=== PATIENT | female | born 1995 | race African-American/Black ===

== ENCOUNTER 2019-08-20 07:19 | Inpatient (IN) | payer OTHER ==
[~2019-08-20] VITALS: Ht 154.9 cm; Wt 96.4 kg
[2019-08-20] VITALS (43 sets, daily range): BP systolic 91–169; BP diastolic 52–135
[2019-08-20] MEDS ORDERED: PRENTAB9 PO (07:32)
[2019-08-20] MEDS ORDERED: LACTATED RINGER'S 1000 ML IV STA (09:39)
[2019-08-20 10:11] LABS: HEMATOCRIT 30.8 % (36.0-47.0); HEMOGLOBIN 9.8 g/dl (12.0-15.5); MEAN CORPUSCULAR HEMOGLOBIN 29.4 pg (27.0-33.0); MEAN CORPUSCULAR HGB CONC 31.8 g/dl (32.0-36.5); MEAN CORPUSCULAR VOLUME 92.5 fl (80.0-96.0); PLATELET COUNT, AUTOMATED 293 10^3/uL (150-450); RED BLOOD COUNT 3.33 10^6/uL (4.00-5.40); WHITE BLOOD COUNT 8.7 10^3/uL (4.0-10.0)
[2019-08-20 10:45] LABS: ALT/SGPT 22 U/L (12-78); BILIRUBIN,TOTAL 0.2 MG/DL (0.2-1.0); GLOMERULAR FILTRATION RATE > 60.0 (>60); LDH LACTATE DEHYDROGENASE 185 U/L (84-246); URIC ACID 3.7 MG/DL (2.6-6.0)
[2019-08-20] MEDS ORDERED: OXYTOCIN DRIP 30 UNITS in IV 1 EA IV SCH (10:45)
--- NOTE | 2019-08-20 11:03 | HPEPDOC ---
Obstetrical History & Physical General Date of Admission Aug 20, 2019 at 09:07 History of Present Illness Saravanan is a 23yo with SIUP at 39w3d by lmp c/w 9wk u/s who presents to L&D with chief complaint of contractions that started this morning. No loss of fluid, no vaginal bleeding. Has felt movement. No f/c/n/v/CP/SOB. 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: History of STD (hx of chlamydia) Past Medical History Medical History asthma as a child, obesity (starting BMI 32) Surgical History: [place] teeth Family History Significant Family History: No pertinent family hx Social History Marital Status: Family situation: Spouse/partner home Psychosocial History: No pertinent psych hx * Smoker: non-smoker Alcohol: Denies Drugs: denies Imunizations Tdap status: current Influenza Status: current Allergies Coded Allergies: No Known Allergies (Unverified , 08/20/19) Medications Scheduled No.137/Iron/Folic Acd ( Vitamin Tablet) 1 Each Tablet, 1 TAB PO DAILY Physical Examination Physical Examination GENERAL: Alert and oriented times three. ABDOMEN: Gravid and non-tender to touch. FETUS: Is vertex (VTX) by sterile vaginal examination (SVE) EXTREMITIES: No edema. Vital Signs/I&O Vital Signs Date Time Temp Pulse Resp B/P (MAP) Pulse Ox O2 Delivery O2 Flow Rate FiO2 08/20/19 08:07 74 18 114/63 (80) 08/20/19 07:48 98.3 99 Laboratory Data 24H LABS Laboratory Tests 2 08/20/19 09:15: Serology Scanned Report Hepatitis B Testing 08/20/19 09:54: CBC/BMP Pertinent Laboratoy Data Blood Type: A+ RBC Antibody Screen: Negative HIV: Negative Hepatitis B: Negative Hepatitis C: Unknown Rapid Plasma Reagin: Nonreactive Rubella: Immune Varicella: Nonreactive Chlamydia/Gonorrhea: Negative Group B Streptococcus: Negative Glucose Tolerance Test: 109 Anatomy Ultrasound Ultrasound Date: Apr 09, 2019 Placenta Location: Anterior Normal Anatomy: Yes Placenta Previa: No Steroid Therapy Steroid Therapy: No Vaginal Examination Dilation: 1cm Effacement: other (thick ) Station: -3 Cervical Consistency: Firm Cervical Position: Posterior Presentation: Cephalic presentation Assessment Heart Rate (FHR): 150 Variability: Minimal to moderate Accelerations: Positive Decelerations: Late (very occasional ) Tocometer Contractions: Yes Frequency: greater than 10 min/apart Strength: palpated as mild Assessment/Plan Assessment Saravanan is a 23yo with SIUP at 39w3d by lmp c/w 9wk u/s with no evidence of labor, but during routine NST was noted to have subtle late FHR decels and min-mod blair. Given her gestational age, I recommend we proceed with augmentation/induction which patient is amenable to. SCE 2/75/-2. Cervical gabriel bulb placed with 40cc NS. Cat II FHRT with min-mod blair, +accels, very occasional late decel. Ctx q10min. Cephalic by SCE. GBS negative. 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 Diet: clear liquids Group B Streptococcus (GBS) negative Labs and intravenous (IV) per unit protocol. Counseled on gabriel bulb, pitocin and induction of labor (IOL). Lactated Ringers (LR): Bolus 1000 mL, then at 125 mL/hr. Anticipate normal spontaneous delivery () Candidate for epidural as desired in active labor, IV stadol with reassuring FHRT prior MD Sorin Abad Katrina D MD Aug 20, 2019 10:22
[2019-08-20] MEDS: BUTORPHANOL 2 MG/ML INJ (J0595) IV PRN ×2 (11:37→15:50)
[2019-08-20] MEDS: LR 1,000 ML IV SCH ×2 (11:38→18:18)
[2019-08-20] MEDS ORDERED: FENTANYL 2MCG/ML ROPIVACAINE 0.2% IN 0.9% NACL 100ML IVBAG As Ordered ONE (18:12)
--- NOTE | 2019-08-20 18:13 | IPNPDOC ---
Text Note Date of Service The patient was seen on 08/20/19. NOTE Intrapartum Note Saravanan is doing well, coping with discomfort of her ctx. Had 2nd dose of 2mg IV stadol about 2 hours ago. A bit nauseous currently. RN reports gabriel bulb fell out earlier in the afternoon and pt had SROM, clear that was nitrazine positive with continued leaking. Pitocin has been titrated up per protocol. Vitals wnl, afebrile Cat I FHRT currently with mod blair, +accels, early decels [place]: ctx q3-4min SCE: 6/80/-2, rupture of forebag with exam and lightly stained mec fluid noted Patient now desiring epidural, anesthesia notified Will continue to titrate pitocin per protocol Equine Intern notified of presence of meconium Safe to proceed Dr. Citlalli Rowell MD VS,Holger, I+O VS, Holger, I+O Laboratory Tests 08/20/19 09:54 Vital Signs Date Time Temp Pulse Resp B/P (MAP) Pulse Ox O2 Delivery O2 Flow Rate FiO2 08/20/19 17:07 74 18 117/66 (83) 08/20/19 16:40 98.5 08/20/19 16:06 Room Air 08/20/19 07:48 99 Citlalli Rowell MD Aug 20, 2019 18:12
[2019-08-20] MEDS ORDERED: ONDANSETRON 4MG/2ML VIAL (J2405) As Ordered ONE (18:29)
[2019-08-20] MEDS ORDERED: ONDANSETRON 4MG/2ML VIAL (J2405) IV ONE (18:30)
[2019-08-20] MEDS ORDERED: diphenhydrAMINE INJ 50MG/ML VIAL (J1200) IV PRN (21:00)
[2019-08-20] MEDS ORDERED: ePHEDrine SULFATE 25 MG/5 ML(5MG/ML) SYRINGE IV PRN (21:00)
[2019-08-20] MEDS ORDERED: FENTANYL/ROPIVACAINE/NACL BAG 100 ML EPIDURAL SCH (21:00)
[2019-08-20] MEDS ORDERED: LACTATED RINGER'S 1000 ML IV PRN (21:00)
[2019-08-20] MEDS ORDERED: EPIDURAL COMMENT XX SCH (21:00)
[2019-08-20] MEDS ORDERED: REFRIGERATOR IV KEYS XX PRN (21:00)
[2019-08-20] MEDS ORDERED: EPIDURAL/PCA KEYS XX PRN (21:00)
[2019-08-20] MEDS ORDERED: ONDANSETRON 4MG/2ML VIAL (J2405) IV PRN (21:00)
[2019-08-20] MEDS ORDERED: NALOXONE INJ 0.4 MG/1 ML VIAL (J2310) IV PRN (21:00)
[2019-08-20] MEDS ORDERED: METHYLERGONOVINE MALEATE 0.2 MG/ML VIAL (J2210) As Ordered ONE (23:06)
[2019-08-20] MEDS ORDERED: OXYTOCIN 30 UNITS IN 0.9% NaCl 500ML IV BAG (J2590) As Ordered ONE (23:36)
[2019-08-21 00:13] VITALS: BP 122/66
[2019-08-21] MEDS: OXYTOCIN DRIP 30 UNITS in IV 1 EA IV SCH ×2 (00:13→01:57)
[2019-08-21] MEDS ORDERED: OXYTOCIN DRIP 30 UNITS in IV 1 EA IV SCH (00:13)
[2019-08-21] MEDS ORDERED: RHOGAM 300 MCG (1500 IU) INJ (J2790) IM SCH (00:15)
[2019-08-21] MEDS ORDERED: ACETAMINOPHEN TAB 650MG DOSE (2X325MG) PO PRN (00:15)
[2019-08-21] MEDS ORDERED: DIBUCAINE 1% OINTMENT 30GM TOP PRN (00:15)
[2019-08-21] MEDS ORDERED: MEASLES,MUMPS,RUBELLA VACCINE INJ (MMR-II) (90707) SC SCH (00:15)
[2019-08-21] MEDS ORDERED: IBUPROFEN 600 MG TAB PO PRN (00:15)
[2019-08-21] MEDS ORDERED: METHYLERGONOVINE MALEATE 0.2 MG/ML VIAL (J2210) IM ONE (00:15)
[2019-08-21] MEDS ORDERED: ACETAMINOPHEN 500 MG TAB PO PRN (00:15)
[2019-08-21] MEDS ORDERED: miSOPROStol 200 MCG TAB (S0191) PR ONE (00:15)
[2019-08-21] MEDS ORDERED: DOCUSATE SODIUM 100 MG CAP PO PRN (00:15)
[2019-08-21 00:29] VITALS: BP 125/75
--- NOTE | 2019-08-21 01:55 | DNPDOC ---
[facility] Delivery Note Delivery Note DATE OF DELIVERY: 20 Aug 2019 PREDELIVERY DIAGNOSIS: 39w3d gestation with NRFHT POST DELIVERY DIAGNOSIS: Term gestation delivered hemorrhage PROCEDURE: Spontaneous vaginal delivery FUELS ENGINEER: Dr. Citlalli Rowell MD ANESTHESIA: epidural ESTIMATED BLOOD LOSS: 750 mL. FINDINGS: 7 pound 10 ounce (3470g) female infant, Score 8/9 DELIVERY SUMMARY: Saravanan is a 23yo [id number] s/p at 39w3d after undergoing IOL for NRFHT seen when she presented for labor check. She delivered at 22:49 on 20 Aug 2019. Induction was started with gabriel bulb and pitocin. She progressed well and had SROM after receiving an epidural. Amniotic fluid was seen to be slightly meconium stained when a forebag was ruptured on a subsequent exam. When she reached C/C/0, she began pushing. head delivered OA and restituted CHALO. There was a right compound hand. Anterior shoulder delivered followed by posterior shoulder and corpus. Infant had terminal meconium but immediately vigorous, placed on maternal chest where infant's mouth and nose were suctioned with bulb suction. Cord was clamped x2 and cut by FOB, then was taken to warmer for further suctioning. Small abrasion noted on the inner left labia, repaired with a figure of 8 using 4-0 vicryl. With uterine massage and traction on the umbilical cord, placenta delivered. There were some trailing membranes that seemed to be easily retrieved just inside the vagina. However, despite IV pitocin being given per protocol and further bimanual massage, patient continued to have heavy uterine bleeding. I performed manual sweeps that retrieved small amounts of very adherent and very small pieces of placenta/membranes, but the patient continued bleeding. She was given 0.2mg IM methergine. More uterine sweeps were performed but heavy bleeding persisted in the setting of atony. I then called for bakri balloon and placed the balloon within the uterus with 100cc of NS filling the balloon- this, and having some time for the uterotonics to act, stopped the patient's bleeding. The bakri was attached to a gabriel bag. Indwelling gabriel bladder catheter was replaced. I finally placed 1000mcg of cytotec rectally for continued prophylaxis against future bleeding. When I left the room, mom was doing well. was taken to NICU for observation after needing further suctioning after delivery. Patient will receive a dose of unasyn for the uterine sweeps she received. Plan to perform CBC in 6 hours. Plan to remove fluid from Bakri incrementally. MD Sorin Abad Katrina D MD Aug 21, 2019 01:55
[2019-08-21] MEDS ORDERED: AMPICILLIN SOD/SULBACTAM SOD 3 GM in D5W MINI-BAG PLUS 100 ML IV ONE (02:00)
[2019-08-21 03:30] VITALS: BP 119/62
[2019-08-21 05:46] VITALS: BP 120/71
[2019-08-21] MEDS ORDERED: miSOPROStol 200 MCG TAB (S0191) As Ordered ONE (06:24)
[2019-08-21 06:41] LABS: HEMATOCRIT 25.3 % (36.0-47.0); MEAN CORPUSCULAR HEMOGLOBIN 29.2 pg (27.0-33.0); MEAN CORPUSCULAR HGB CONC 31.6 g/dl (32.0-36.5); MEAN CORPUSCULAR VOLUME 92.3 fl (80.0-96.0); PLATELET COUNT, AUTOMATED 244 10^3/uL (150-450); RED BLOOD COUNT 2.74 10^6/uL (4.00-5.40); WHITE BLOOD COUNT 16.1 10^3/uL (4.0-10.0)
[2019-08-21] MEDS: PRENATAL VITAMINS CHEWABLE TABLET PO SCH (08:39)
[2019-08-21] MEDS: IBUPROFEN 800 MG TAB PO PRN ×2 (08:40→17:35)
--- NOTE | 2019-08-21 09:57 | IPNPDOC ---
Progress Note Date of Service: Aug 21, 2019 Day#: 1 Progress Note PPD 1 SUBJECT: Saravanan is a 23yo [id number] s/p late last night that was complicated by PPH with EBL 700ml addressed with IV pitocin/IM methergine/FL cytotec and Bakri balloon(100cc), doing well day # 1. She has not yet ambulated, has gabriel in place draining dilute clear urine, and tolerating regular diet. Breast feeding without issue. With Bakri still in place, she feels slight cramping. No fevers/chills. She received 1 dose of IV Unasyn after delivery for uterine sweeps. No f/c/n/v/CP/SOB. OBJECTIVE: VITAL SIGNS: Within normal limits, afebrile. Alert and oriented times three. Abdomen: Fundus firm at U-2. Soft, NTTP. Extremities: no pain with palpation of calves Bakri output 75cc since placement Labs: Admission H/H: 9.8/30.8 H/H 6hr after delivery: 05/13.3 ASSESSMENT: Saravanan is a 23yo [id number] s/p late last night that was complicated by PPH with EBL 700ml addressed with IV pitocin/IM methergine/FL cytotec and Bakri balloon(100cc), doing well day # 1. Vitals within normal limits, afebrile, hemodynamically stable with no evidence of infection. Minimal output of Bakri and uterus remains firm with no bleeding around Bakri. PLAN: 1. Routine pp care 2. Discussed plan for removal of Bakri with oncoming provider. Bakri has 100cc of NS in it, will reduce incrementally. Gabriel catheter can be removed with removal of Bakri. 3. Tylenol and Motrin for pain. 4. Encourage breast feeding and ambulation 5. Regular diet Dr. Citlalli Rowell MD VS, I&O, 24H, Fishbone Vital Signs/I&O Vital Signs Date Time Temp Pulse Resp B/P (MAP) Pulse Ox O2 Delivery O2 Flow Rate FiO2 08/21/19 05:46 99.4 86 16 120/71 (87) 99 Room Air I&O- Last 24 Hours up to 6 AM 08/21/19 06:00 Intake Total 4620 ml Output Total 4326 ml Balance 294 ml Laboratory Data 24H LABS Laboratory Tests 2 08/20/19 09:54: Nucleated Red Blood Cells % (auto) 0.0, Glomerular Filtration Rate > 60.0, Uric Acid 3.7, Total Bilirubin 0.2, Aspartate Amino Transf (AST/SGOT) 13, Alanine Aminotransferase (ALT/SGPT) 22, Lactate Dehydrogenase 185, Syphilis Serology N ONREACTIVE 08/21/19 06:22: Nucleated Red Blood Cells % (auto) 0.0 CBC/BMP Laboratory Tests 08/20/19 09:54 08/21/19 06:22 Citlalli Rowell MD Aug 21, 2019 09:57
[2019-08-21 18:00] VITALS: BP 124/73
[2019-08-22 06:15] VITALS: BP 139/75
[2019-08-22] MEDS: IBUPROFEN 800 MG TAB PO PRN (08:52)
[2019-08-22] MEDS: PRENATAL VITAMINS CHEWABLE TABLET PO SCH (08:53)
--- NOTE | 2019-08-22 10:47 | DSES ---
DATE OF ADMISSION: 08/20/2019 DATE OF DISCHARGE: 08/22/2019 This lady is a 23-year-old 3 now para 1 admitted with contractions at 39 and 3 weeks of gestation, had a spontaneous vaginal delivery with epidural in place of female 7 pounds 10 ounces, 3470 grams, scores of eight and nine at 1 and 5 minutes respectively. She had a hemorrhage requiring a Bakri balloon as well as Methergine and Syntocinon. Her hemoglobin initially was 9.8, hematocrit 30.8 and platelets were 293. day 1 hemoglobin 8.0, hematocrit 25.3 and platelets 244. She did not require any transfusions. She was asymptomatic. The Bakri was removed and she has no further bleeding. Blood pressure this morning is 139/75, respirations 16, pulse 91, temperature is 98.7. We discussed phlebitis, cystitis, mastitis, endometritis, cellulitis, diet, exercise, pain management, perineal, breast and wound care. Her meds are dispensed at [place] which she has already picked up. She plans on taking the baby to [place]. The rest of the examination is unremarkable. Normocephalic, atraumatic. Neck full range of motion. Pupils equal and reactive to light. Distal pulses are symmetric. No evidence of deep vein thrombosis (DVT), pulmonary embolism (PE), or superficial phlebitis. Chest is clear bilaterally to bases. No wheezes or rhonchi. No CVA tenderness. Abdomen soft. Uterus 2 below. Lochia is moderate. Four quadrant bowel sounds are noted. Perineum is intact. She has no rashes, lesions or pruritus. No arthralgia, myalgia. No complaint joint pain. No complaint cough, wheeze, or shortness of breath or dyspnea on exertion. She has no nausea, vomiting, diarrhea or constipation. In summary we have a term gestation delivered a live female infant with a hemorrhage of 750. No replacement was required. The patient has a followup 6 weeks at [facility] and her medications were dispensed at [place], which she is already picked up.
[2019-08-22] MEDS ORDERED: IBUP-1022 PO (11:35)
[2019-08-22] MEDS ORDERED: DOCU100C16 PO (11:35)
[2019-08-22] MEDS ORDERED: ACET1TAB55 PO (11:35)
[2019-08-22] MEDS ORDERED: medroxyPROGESTERone ACET IM SUSP 150 MG/ML VIAL (J1050) IM ONE (12:00)
== END 2019-08-22 13:00 | disposition home or self-care (01) | DRG 807 ==
LOC: M LDO 07:19 → M LDI 09:07 → M OBS 08-21 03:18
PROVIDERS: ADMIT Obstetrics & Gynecology; ATTEND Obstetrics & Gynecology
PROC: 10E0XZZ Delivery of Products of Conception, External Approach (ICD-10-PCS; principal; 2019-08-21)
DX: O99.214 Obesity complicating childbirth (principal); Z37.0 Single live birth; E66.9 Obesity, unspecified; Z3A.39 39 weeks gestation of pregnancy; O76 Abnormality in fetal heart rate and rhythm complicating labor and delivery; O64.5XX0 Obstructed labor due to compound presentation, not applicable or unspecified; O77.0 Labor and delivery complicated by meconium in amniotic fluid; O72.1 Other immediate postpartum hemorrhage

== ENCOUNTER 2020-11-07 12:39 | Emergency (ER) | payer OTHER, SELFPAY ==
[~2020-11-07] VITALS: Ht 154.9 cm; Wt 80.0 kg
[~2020-11-07 12:39] MED LIST: ACET1TAB55 PO; DOCU100C16 PO; IBUP-1022 PO; PRENTAB9 PO
--- OUTSIDE RECORDS SUMMARY | 2020-11-07 12:43 | CCD ---
Author Author [facility] Organization [facility] Address Unknown Phone Unavailable Care Team Providers Care R And D Lab Technician Name Role Phone Feola, T Jazmine PA Unavailable Unavailable Feola, T Jazmine PA Unavailable Unavailable Feola, T Jazmine PA Unavailable Unavailable Feola, T Jazmine PA Unavailable Unavailable Feola, T Jazmine PA Unavailable Unavailable Feola, T Jazmine PA Unavailable Unavailable Feola, T Jazmine PA Unavailable Unavailable Feola, T Jazmine PA Unavailable Unavailable Feola, T Jazmine PA Unavailable Unavailable Feola, T Jazmine PA Unavailable Unavailable Feola, T Jazmine PA Unavailable Unavailable Feola, T Jazmine PA Unavailable Unavailable Feola, T Jazmine PA Unavailable Unavailable Feola, T Jazmine PA Unavailable Unavailable Feola, T Jazmine PA Unavailable Unavailable Feola, T Jazmine PA Unavailable Unavailable Feola, T Jazmine PA Unavailable Unavailable Feola, T Jazmine PA Unavailable Unavailable Feola, T Jazmine PA Unavailable Unavailable Feola, T Jazmine PA Unavailable Unavailable Feola, T Jazmine PA Unavailable Unavailable Feola, T Jazmine PA Unavailable Unavailable Feola, T Jazmine PA Unavailable Unavailable Feola, T Jazmine PA Unavailable Unavailable Feola, T Jazmine PA Unavailable Unavailable Feola, T Jazmine PA Unavailable Unavailable Feola, T Jazmine PA Unavailable Unavailable Feola, T Jazmine PA Unavailable Unavailable Feola, T Jazmine PA Unavailable Unavailable Feola, T Jazmine PA Unavailable Unavailable Feola, T Jazmine PA Unavailable Unavailable Feola, T Jazmine PA Unavailable Unavailable Feola, T Jazmine PA Unavailable Unavailable Feola, T Jazmine PA Unavailable Unavailable Feola, T Jazmine PA Unavailable Unavailable Feola, T Jazmine PA Unavailable Unavailable Feola, T Jazmine PA Unavailable Unavailable Re-disclosure Warning The records that you are about to access may contain information from federally-assisted alcohol or drug abuse programs. If such information is present, then the following federally mandated warning applies: This information has been disclosed to you from records protected by federal confidentiality rules (42 CFR part 2). The federal rules prohibit you from making any further disclosure of this information unless further disclosure is expressly permitted by the written consent of the person to whom it pertains or as otherwise permitted by 42 CFR part 2. A general authorization for the release of medical or other information is NOT sufficient for this purpose. The Federal rules restrict any use of the information to criminally investigate or prosecute any alcohol or drug abuse patient.The records that you are about to access may contain highly sensitive health information, the redisclosure of which is protected by Article 27-F of the [facility] Public Health law. If you continue you may have access to information: Regarding HIV / AIDS; Provided by facilities licensed or operated by the [facility] Office of Mental Health; or Provided by the [facility] Office for People With Developmental Disabilities. If such information is present, then the following [facility] mandated warning applies: This information has been disclosed to you from confidential records which are protected by state law. State law prohibits you from making any further disclosure of this information without the specific written consent of the person to whom it pertains, or as otherwise permitted by law. Any unauthorized further disclosure in violation of state law may result in a fine or fci sentence or both. A general authorization for the release of medical or other information is NOT sufficient authorization for further disc losure. Encounters Encounter Providers Location Date Indications Data Source(s ) Outpatient Attender: Jazmine BAZZI 021 09:48:54 AM EST - 10/11/2020 11:22:24 AM EST [facility] ([facility] ) Insurance Providers Payer name Policy type / Coverage type Policy ID Covered constitution party ID Covered constitution party's relationship to matos Policy Matos Plan Information [place] [id number] [facility] [id number] Family Health Plan / [id number] Self [id number] RPR- Needs Payer Match [id number] Self [id number] SELF PAY ONLY [id number] SELF PAY O UNAVAILABLE S UNAVAILA BLE Results ID Date Data Source [id number] 10/11/2020 12:00:00 AM EST [facility] Name Value Range Interpretation Code Description Data Lin rce(s) Supporting Document(s) Carestart Rapid COVID Antigen Test Positive [facility] This lab was reported by Oswaldo hayward. ID Date Data Source [id number] 10/03/2020 12:00:00 AM EST [facility] Name Value Range Interpretation Code Description Data Lin rce(s) Supporting Document(s) SARS coronavirus 2 RNA [Presence] in Res piratory specimen by TAVARES with probe detection NEGATIVE [facility] This lab was ordered by Oswaldo Mclaughlin and reported by [facility]. ID Date Data Source [id number] 10/03/2020 12:00:00 AM EST [facility] Name Value Range Interpretation Code Description Data Lin rce(s) Supporting Document(s) Carestart Rapid COVID Antigen Test Negative [facility] This lab was reported by Oswaldo hayward. Procedure
--- NOTE | 2020-11-07 13:10 | REP ---
INDICATION: pain and swelling after fall. COMPARISON: None. TECHNIQUE: Four views of the left ankle. FINDINGS: Ankle mortise is intact. There is anterolateral soft tissue swelling moderate in degree. No fracture is seen. No subluxation noted. Joint spaces are preserved. IMPRESSION: No fracture noted. Anterolateral soft tissue swelling. <Electronically signed by Jamie Sanchez > 11/07/20 [id number]
--- OUTSIDE RECORDS SUMMARY | 2020-11-07 13:17 | CCD ---
Author Author [facility] Organization [facility] Address Unknown Phone Unavailable Care Team Providers Care Roof Fixer Name Role Phone Feola, T Jazmine PA [...] is protected by Article 27-F of the [facility] [place] Public Health law. If you continue you may have access to information: Regarding HIV / AIDS; Provided by facilities licensed or operated by the [facility] [place] Office of Mental Health; or Provided by the [facility] Office for People With Developmental Disabilities. If such information is present, then the following [facility] mandated warning applies: This information has been [...] law may result in a fine or chcf sentence or both. A general authorization for the release of medical or other information is NOT sufficient authorization for further disc losure. Encounters Encounter Providers Location Date Indications Data Source(s ) Outpatient Attender: Jazmine BAZZI 021 09:48:54 AM EST - 10/11/2020 11:22:24 AM EST [facility] ([facility] ) Insurance Providers Payer name Policy type / Coverage type Policy ID Covered democrat ID Covered democrat's relationship to matos Policy Matos Plan Information [facility] [id number] [facility] [id number] [facility] [id number] [facility] Plan [facility]/ [id number] Self [id number] RPR- Needs Payer Match [id number] Self [id number] SELF PAY ONLY [id number] SP [id number] SELF PAY O UNAVAILABLE S UNAVAILA BLE Results ID Date Data Source [id number] 10/11/2020 12:00:00 AM EST [facility] Name Value Range Interpretation Code Description Data Lin rce(s) Supporting Document(s) Carestart Rapid COVID Antigen Test Positive [facility] This lab was reported by Oswaldo hayward. ID Date Data Source [id number] 10/03/2020 12:00:00 AM EST [facility] Name Value Range Interpretation Code Description Data Lin rce(s) Supporting Document(s) SARS coronavirus 2 RNA [Presence] in Res piratory specimen by TAVARES with probe detection NEGATIVE [facility] This lab was ordered by Oswaldo Mclaughlin and reported by [facility]. ID Date Data Source [id number] 10/03/2020 12:00:00 AM EST [facility] Name Value Range Interpretation Code Description Data Lin rce(s) Supporting Document(s) Carestart Rapid COVID Antigen Test Negative [facility] This lab was reported by Oswaldo ARROYO Desiree hayward. Procedure
[2020-11-07] MEDS ORDERED: KETOROLAC TROMETHAMINE 10 MG TAB PO ONE (13:45)
[2020-11-07 14:11] VITALS: BP 129/76
== END 2020-11-07 14:16 | disposition home or self-care (01) ==
LOC: M ED 12:39
DX: S93.412A Sprain of calcaneofibular ligament of left ankle, initial encounter (principal); Y92.9 Unspecified place or not applicable; Y93.9 Activity, unspecified; Y99.9 Unspecified external cause status